=== PATIENT | male | born 1955 | race Hispanic/Latino ===

== ENCOUNTER 2022-11-18 18:08 | Emergency (ER) | payer MEDICARE ==
[~2022-11-18] VITALS: Ht 167.6 cm; Wt 81.6 kg
[~2022-11-18 18:08] MED LIST: ETOMIDATE 2 MG/ML 10 ML INJ IV ONE; MIDAZOLAM HCL 2 MG/2 ML VIAL ONE; SUCCINYLCHOLINE CHLORIDE 20 MG/ML 10ML VIAL ONE; VECURONIUM BROMIDE FOR INJ 20 MG VIAL ONE; WATER STERILE 10 ML VIAL ONE
[2022-11-18] MEDS ORDERED: ONDANSETRON HCL INJ 2MG/ML 2ML 2 MG/ML VIAL IV STA (18:16)
[2022-11-18] MEDS ORDERED: SODIUM CHLORIDE 0.9% 1000ML 1,000 ML IV ONE ×3 (18:30→20:00)
[2022-11-18] MEDS ORDERED: Morphine 4mg INJECTION 4 MG/ML INJ IV ONE (18:30)
[2022-11-18 18:38] LABS: BASOPHILS % 0.2 % (0.0-1.0); EOSINOPHILS % 0.2 % (0.0-6.0); HEMATOCRIT 57.8 % (38.2-49.6); HEMOGLOBIN 20.1 g/dL (14.0-18.0); LYMPHOCYTES # (AUTO) 1.9 (1.0-3.2); LYMPHOCYTES % 15.1 % (18.0-39.1); MEAN CORPUSCULAR HEMOGLOBIN 34.8 pg (28-32); MEAN CORPUSCULAR HGB CONC 34.8 g/dL (31-35); MONOCYTES # (AUTO) 0.5 (0.2-0.8); MONOCYTES % 4.3 % (4.4-11.3); NEUTROPHILS # (AUTO) 9.8 (2.1-6.9); NEUTROPHILS % 79.9 % (38.7-80.0); PLATELET COUNT 287 x10e3/uL (140-360); RED BLOOD COUNT 5.78 x10e6/uL (4.3-5.7); RED CELL DISTRIBUTION WIDTH 12.2 % (11.7-14.4)
[2022-11-18 18:56] LABS: ALBUMIN 5.2 g/dL (3.5-5.0); ALBUMIN/GLOBULIN RATIO 1.1 (0.8-2.0); CALCIUM 11.3 mg/dL (8.4-10.2); CREATININE, SERUM 3.03 mg/dL (0.72-1.25)
[2022-11-18] MEDS ORDERED: HALOPERIDOL LACTATE 5 MG/ML VIAL IV ONE (19:00)
[2022-11-18 19:02] LABS: CREATINE KINASE MB 1.6 ng/mL (0-5.0)
[2022-11-18 19:08] LABS: LIPASE 40 U/L (8-78)
[2022-11-18] MEDS ORDERED: NALOXONE HCL INJ 0.4 MG/ML AMP ONE (19:17)
[2022-11-18] MEDS ORDERED: NOREPINEPHRINE 8 MG/D5W 250 ML 250 ML ONE (19:21)
[2022-11-18] MEDS ORDERED: SODIUM CHLORIDE 0.9% 1000ML 1,000 ML ONE (19:26)
[2022-11-18 19:28] VITALS: PULSE 121; RESP 24; O2SAT 100
[2022-11-18] MEDS ORDERED: IOPAMIDOL 370 MG/ML 100 ML INFUS..BTL INJ ONE (19:43)
[2022-11-18] MEDS ORDERED: SODIUM CHLORIDE 0.9% 100 ML ONE (19:43)
[2022-11-18] MEDS ORDERED: MIDAZOLAM HCL 2 MG/2 ML VIAL IV STA (19:58)
[2022-11-18] MEDS ORDERED: VECURONIUM BROMIDE FOR INJ 20 MG VIAL IV STA (19:58)
[2022-11-18] MEDS ORDERED: SUCCINYLCHOLINE 200 MG/10 ML SYR IV STA (19:58)
[2022-11-18] MEDS ORDERED: ETOMIDATE 2 MG/ML 10 ML INJ IV STA (19:58)
[2022-11-18 20:15] VITALS: PULSE 101; RESP 18; O2SAT 100
[2022-11-18] MEDS ORDERED: NOREPINEPHRINE 8 MG/D5W 250 ML 250 ML IV SCH (20:45)
[2022-11-18] MEDS ORDERED: VASOPRESSIN INJ 20 UNIT/ML VIAL ONE ×3 (20:49→20:56)
[2022-11-18 20:54] LABS: CLARITY,URINE SL CLOUDY (CLEAR); COLOR,URINE AMBER (YELLOW); LEUKOCYTE ESTERASE ,URINE NEGATIVE (NEGATIVE); NITRITE,URINE NEGATIVE (NEGATIVE); PROTEIN,URINE DIPSTICK 2+ (NEGATIVE)
[2022-11-18 20:55] LABS: KETONES,URINE TRACE (NEGATIVE); URINE UROBILINOGEN 0.2 mg/dL (0.2 - 1)
[2022-11-18] MEDS ORDERED: DEXTROSE 5% 50ML 100 ML IV ONE (20:56)
[2022-11-18] MEDS ORDERED: DEXTROSE 5% 250ML 250 ML IV ONE (20:57)
[2022-11-18] MEDS ORDERED: EPINEPHRINE HCL SYRINGE ONE (20:57)
[2022-11-18 21:00] VITALS: PULSE 82; RESP 22; O2SAT 100
[2022-11-18 21:03] LABS: BACTERIA,URINE MODERATE /HPF; RBC,URINE 0-5 /HPF (0-5)
[2022-11-18 21:04] LABS: AMORPHOUS SEDIMENT,URINE MANY (FEW)
[2022-11-18 21:05] LABS: ABG PH 7.23 (7.35-7.45)
[2022-11-18 21:06] LABS: ABG HCO3 29 mmol/L (22-26); ABG PCO2 68 mmHg (35-45); ABG PO2 53 mmHg (80-105); ABG TCO2 31
[2022-11-18] MEDS ORDERED: VASOPRESSIN 60 UNIT in DEXTROSE 5% 50ML 50 ML IV SCH (21:15)
[2022-11-18] MEDS ORDERED: PHENYLEPHRINE HCL IN 0.9% NACL 250 ML IV ONE (21:17)
[2022-11-18] MEDS ORDERED: PHENYLEPHRINE 10MG/ML VIAL 40 MG in DEXTROSE 5% 250ML 246 ML IV SCH (21:30)
[2022-11-18 22:00] VITALS: BP 62/44; PULSE 105
[2022-11-18 23:00] VITALS: O2SAT 0
== END 2022-11-19 03:41 | disposition expired ==
LOC: ER 18:13
DX: A41.9 Sepsis, unspecified organism (principal); R65.21 Severe sepsis with septic shock; K55.9 Vascular disorder of intestine, unspecified; J96.90 Respiratory failure, unspecified, unspecified whether with hypoxia or hypercapnia; Z20.822 Contact with and (suspected) exposure to COVID-19; K56.609 Unspecified intestinal obstruction, unspecified as to partial versus complete obstruction; I10 Essential (primary) hypertension; E78.5 Hyperlipidemia, unspecified
CPT/HCPCS: 31500; 36415; 36555; 51700; 70450; 71045; 71275; 74174; 74176; 80053; 80320; 81001; 82550; 82553; 82805; 83605; 83690; 84484; 85025; 87040; 87071; 87186; 87205; 92950; 93005; 94002; 94799; 99285; C9113; J0171; J0330; J1630; J2250; J2270; J2310; J2370; J2405; J2543; J7030; J7050; J7070; Q9967; U0002